=== PATIENT | female | born 1975 | race Caucasian/White ===

== ENCOUNTER → 2016-09-01 17:13 | Outpatient (CLI) | payer MEDICAID | END | disposition home or self-care (01) | LOC: D.MAMMO 15:00 | DX: Z12.31 Encounter for screening mammogram for malignant neoplasm of breast (principal) ==

== ENCOUNTER 2016-09-29 12:03 | Outpatient (CLI) | payer MEDICAID | END 2016-09-29 13:22 | LOC: D.MAMMO 12:03 | DX: R92.2 Inconclusive mammogram (principal) ==

== ENCOUNTER → 2016-10-11 08:37 | Outpatient (CLI) | payer OTHER | END | disposition home or self-care (01) | LOC: D.US 08:37 | DX: N63 Unspecified lump in breast (principal) ==

== ENCOUNTER 2016-11-03 05:25 | Day surgery (SDC) | payer OTHER ==
[2016-11-02 09:50] LABS: BASOPHILS 0.2 % (0-2); EOSINOPHILS 1.8 % (0-7); HEMATOCRIT 41.2 % (36.0-48.0); HEMOGLOBIN 14.1 g/dL (12-16); IMMATURE GRANULOCYTES 0.3 % (0-5); LYMPHOCYTES 26.3 % (15-50); MCH 30.9 pg (26.0-34.0); MCHC 34.2 g/dL (31.0-37.0); MCV 90.4 fL (80.0-100.0); MEAN PLATELET VOLUME 10.6 fL (7.4-10.4); MONOCYTES 6.2 % (2-11); NEUTROPHILS 65.2 % (40-80); PLATELET COUNT 281 10x3/uL (130-400); RBC 4.56 10x6/uL (4.00-5.40); RDW 13.8 % (11.5-14.5)
[2016-11-02 10:06] LABS: APTT 25.2 SECONDS (22.8-39.4); INR 0.91 (0.85-1.17); PROTIME 12.1 SECONDS (11.6-15.0)
[2016-11-02 10:19] LABS: CALC OSMOLALITY 280 mosm/kg (275-300); CALCIUM 8.4 mg/dL (8.5-10.1); CARBON DIOXIDE 28.2 mmol/L (21.0-32.0); CHLORIDE - SERUM 105 mmol/L (98-107); CREATININE - SERUM 0.7 mg/dL (0.6-1.3); GLUCOSE 102 mg/dL (74-106); POTASSIUM - SERUM 3.6 mmol/L (3.5-5.1); SODIUM 141 mmol/L (136-145); UREA NITROGEN 12 mg/dL (7-18); eGFR NON AFRICAN AMERICAN > 90 mL/min (90-120)
[~2016-11-03] VITALS: Ht 157.5 cm; Wt 86.6 kg
--- NOTE | ~2016-11-03 | OP ---
PATIENT NAME: LASHANDA MOREAU MEDICAL RECORD: [id number] :73 LOCATION:D.OPS ADMISSION DATE: SURGEON: CARLITO FLORES MD OPERATION DATE: 11/03/16 DATE OF OPERATION: 11/03/2016 PREOPERATIVE DIAGNOSES: 1. Fibroadenoma of the right breast. 2. Hypertension. 3. Hypercholesterolemia. POSTOPERATIVE DIAGNOSES: 1. Fibroadenoma of the right breast. 2. Hypertension. 3. Hypercholesterolemia. PROCEDURE: Right breast needle loc lumpectomy. SURGEON: Carlito Flores MD. REPORT OF PROCEDURE: The patient had been taken to radiology preoperatively for needle localization. In the operating room, the patient was prepped and draped in sterile fashion. The right breast was exposed with the wire extending out of it at the 12 o'clock position. A skin incision was made in semicircular fashion on the superior aspect of the patient's nipple areolar complex. Electrocautery was used to dissect through the subcutaneous tissues and we came down to the wire. The wire was pulled through the incision site. We then used electrocautery to dissect down around the wire including a large lump of breast tissue in the subareolar space. We continued this dissection down past the wire, I could see one of the tips of the wire extending out laterally, we took a little bit more tissue laterally and after marking the entire specimen, it was sent off to radiology. The wire was noted to be completely intact, but the clip was not present within it. For this reason, I took a little bit more of the lateral and inferior tissue and sent this off for specimen. Any bleeding that was noted was treated with electrocautery. We then irrigated out the wound thoroughly with normal saline and assured there was no bleeding. The subcutaneous tissues were reapproximated with interrupted 3-0 Vicryl and the skin was closed with running subcutaneous 5-0 Monocryl. A 10 mL of 0.25% Marcaine with epinephrine was infused into the surrounding tissues and the wound was dressed appropriately. COMPLICATIONS: None. CONDITION: Stable. ANESTHESIA: General endotracheal and local. BLOOD LOSS: 30 mL. TRANSINT:[id number] Voice Confirmation ID: [id number] DOCUMENT ID: [id number] OPERATIVE REPORT [id number] LIZZETHLASHANDA MARRERO CARLITO FLORES MD CC: RICKY CABRAL MD [id number] DICTATION DATE: 11/03/16 1444 FULL SERVICE SUPERVISOR: 11/03/16 2129 [facility] 11/03/16 [place] [id number] [place] [id number]
[~2016-11-03 05:25] MED LIST: ATIVAN1 MG PO; HYDROCHLOROTHIA25 MG PO; LIPITOR10 MG PO; OMEPRAZOLE40 MG PO; VIMOVO 500-201 EACH PO; WELLBUTRIN SR150 MG PO; ZEBETA10 MG PO
[2016-11-03 10:24] VITALS: BP 116/72; Ht 157.5 cm; Wt 86.6 kg
--- NOTE | 2016-11-03 10:40 | NUR ---
1040 RELAXING AFTER VALIUM
[2016-11-03] MEDS ORDERED: DILAUDID2 MG PO (14:40)
== END 2016-11-03 16:15 | disposition home or self-care (01) ==
LOC: D.OPS 05:25 → D.PAN 11:00 → D.MAMMO 11:00 → D.OPS 11:00
PROVIDERS: Anesthesiology; Surgery
DX: D24.1 Benign neoplasm of right breast (principal); I10 Essential (primary) hypertension; E78.00 Pure hypercholesterolemia, unspecified; Z01.812 Encounter for preprocedural laboratory examination

== ENCOUNTER → 2017-05-21 13:29 | Outpatient (CLI) | payer OTHER ==
[2016-11-03 10:24] VITALS: BMI 35.0
[~2017-05-21 13:29] MED LIST changes: +DILAUDID2 MG PO
== END | disposition home or self-care (01) ==
LOC: D.MAMMO 09:00
DX: Z86.018 Personal history of other benign neoplasm (principal)

== ENCOUNTER 2017-11-02 05:30 | Day surgery (SDC) | payer OTHER ==
[2017-11-01 16:52] LABS: BASOPHILS 0.1 % (0-2); EOSINOPHILS 1.7 % (0-7); HEMOGLOBIN 13.8 g/dL (12-16); IMMATURE GRANULOCYTES 0.1 % (0-5); LYMPHOCYTES 25.6 % (15-50); MCH 30.7 pg (26.0-34.0); MCHC 34.5 g/dL (31.0-37.0); MCV 88.9 fL (80.0-100.0); MONOCYTES 5.6 % (2-11); NEUTROPHILS 66.9 % (40-80); PLATELET COUNT 264 10x3/uL (130-400); RDW 13.5 % (11.5-14.5); WBC 15.4 10x3/uL (4.8-10.8)
[2017-11-01 17:16] LABS: CALC OSMOLALITY 278 mosm/kg (275-300); CARBON DIOXIDE 28.2 mmol/L (21.0-32.0); CHLORIDE - SERUM 104 mmol/L (98-107); CREATININE - SERUM 0.7 mg/dL (0.6-1.3); GLUCOSE 86 mg/dL (74-106); POTASSIUM - SERUM 3.9 mmol/L (3.5-5.1); SODIUM 141 mmol/L (136-145); UREA NITROGEN 11 mg/dL (7-18); eGFR NON AFRICAN AMERICAN > 90 mL/min (90-120)
[~2017-11-02] VITALS: Ht 157.5 cm; Wt 86.2 kg
--- NOTE | ~2017-11-02 | OP ---
PATIENT NAME: LASHANDA MOREAU MEDICAL RECORD: [id number] :73 LOCATION:D.OPS ADMISSION DATE: SURGEON: ESVIN FLORES MD DATE OF OPERATION: 11/02/2017 PREOPERATIVE DIAGNOSES: 1. Right breast fibroadenoma. 2. Hypertension. 3. Hypercholesterolemia. POSTOPERATIVE DIAGNOSES: 1. Right breast fibroadenoma. 2. Hypertension. 3. Hypercholesterolemia. PROCEDURE: Needle localized excision of right breast lesion. SURGEON: Esvin Flores MD REPORT OF PROCEDURE: A wire was placed by radiology in the right breast preoperatively. The patient was taken to the operating room and the right chest was prepped and draped in sterile fashion. A semicircular incision was made on the inferior aspect of the patient's nipple areolar complex. Electrocautery was used to dissect down to the wire and the wire was pulled through the incision site. We dissected down around the wire including a large collection of breast tissue on the inferior lateral aspect of the breast. We eventually were able to get completely around the wire and the collection of tissue was sent off to radiology where it was shown that the wire was intact and the biopsy clip was present in the specimen. We inspected the area thoroughly and then any bleeding that was found was treated with electrocautery. We then irrigated out the wound thoroughly with normal saline. The subcutaneous tissues were reapproximated with interrupted 3-0 Vicryls and the skin was closed with running subcutaneous 5-0 Monocryl. COMPLICATIONS: None. CONDITION: Stable. ANESTHESIA: General endotracheal and local. BLOOD LOSS: 30 mL. TRANSINT:[id number] Voice Confirmation ID: [id number] DOCUMENT ID: [id number] ESVIN FLORES MD at 0801 CC: RICKY CABRAL [id number] DICTATION DATE: 11/02/17 1203 SUBSTITUTE TEACHER: 11/02/17 1214 [facility] 11/02/17 [place] [id number] [place] [address]
[~2017-11-02 05:30] MED LIST changes: +BAYER CHEWABLE81 MG PO; +MULTIPLE VITAMI1 TA1 PO
[2017-11-02 09:23] VITALS: BP 109/76; Ht 157.5 cm; Wt 86.2 kg
[2017-11-02] MEDS ORDERED: DILAUDID2 MG PO (11:58)
== END 2017-11-02 13:40 | disposition home or self-care (01) ==
LOC: D.OPS 05:30 → EDSTATUS 08:00 → D.PAN 08:00 → D.MAMMO 08:00 → D.OPS 13:40
PROVIDERS: Anesthesiology
DX: D24.1 Benign neoplasm of right breast (principal); I10 Essential (primary) hypertension; E78.00 Pure hypercholesterolemia, unspecified; Z01.812 Encounter for preprocedural laboratory examination